=== PATIENT | female | born 2000 | race Caucasian/White ===

== ENCOUNTER 2022-07-02 17:49 | Emergency (ER) | payer BC, OTHER ==
[~2022-07-02] VITALS: Ht 167.6 cm; Wt 65.0 kg
[2022-07-02 18:08] VITALS: BP 104/72
[2022-07-06 04:07] LABS: NEISSERIA GONORRHOEAE NAA Negative (Negative)
== END 2022-07-02 23:00 | disposition left against medical advice (07) ==
LOC: ER 17:49
DX: R10.2 Pelvic and perineal pain (principal); F41.9 Anxiety disorder, unspecified; F31.9 Bipolar disorder, unspecified; Z97.5 Presence of (intrauterine) contraceptive device
CPT/HCPCS: 76830; 76856; 87210; 87491; 87591; 99284; Z7610